=== PATIENT | female | born 1955 | race Caucasian/White ===

== ENCOUNTER 2020-06-03 21:37 | Emergency (ER) | payer MEDICARE ==
[~2020-06-03] VITALS: Ht 152.4 cm; Wt 59.1 kg
[2020-06-03 22:24] LABS: CLARITY,URINE CLEAR (Clear); COLOR,URINE STRAW (Yellow); GLUCOSE, URINE NEGATIVE (Neg); KETONES,URINE NEGATIVE (Neg); LEUKOCYTE ESTERASE ,URINE TRACE (Neg); NITRITES, URINE NEGATIVE (Neg); OCCULT BLOOD,URINE TRACE-INTACT (Neg); PROTEIN,URINE NEGATIVE (Neg); UROBILINOGEN,URINE 0.2 E.U/dL (0.2-1.0)
[2020-06-03 22:32] LABS: BASOPHILS # (AUTO) 0.1 X10'3 (0-0.2); BASOPHILS % (AUTO) 0.9 % (0-1); EOSINOPHILS # (AUTO) 0.3 X10'3 (0-0.9); EOSINOPHILS % (AUTO) 3.2 % (0-6); HEMATOCRIT 41.4 % (35.0-45.0); HEMOGLOBIN 13.9 g/dl (12.0-16.0); LYMPHOCYTES # (AUTO) 3.5 X10'3 (1.1-4.8); LYMPHOCYTES % (AUTO) 45.1 % (21-51); MEAN CORPUSCULAR HEMOGLOBIN 27.8 PG (27.0-31.0); MEAN CORPUSCULAR HGB CONC 33.5 g/dL (33.0-36.5); MEAN CORPUSCULAR VOLUME 83.2 FL (78-98); MEAN PLATELET VOLUME 9.2 FL (7.4-10.4); MONOCYTES % (AUTO) 12.2 % (2-12); NEUTROPHILS % (AUTO) 38.6 % (42-75); PLATELET COUNT 247 X10'3 (140-440); RED BLOOD COUNT 4.98 X10'6 (4.20-5.60); RED CELL DISTRIBUTION WIDTH 13.1 % (11.5-14.5); WHITE BLOOD COUNT 7.9 X10'3 (4.5-11.0)
[2020-06-03 22:33] LABS: UA COLLECTION TYPE NON-SPECIFIED
[2020-06-03 22:35] LABS: BACTERIA,URINE FEW /HPF (Neg); RBC,URINE 0-2 /HPF (0-2); SQUAMOUS EPITHELIAL CELL,UR FEW /LPF (FEW); WBC,URINE 0-4 /HPF (0-4)
[2020-06-03 22:42] LABS: ALANINE AMINOTRANSFERASE 29 U/L (12-78); ALBUMIN 4.2 G/DL (3.4-5.0); ALBUMIN/GLOBULIN RATIO 1.1 (1.1-1.5); ALKALINE PHOSPHATASE 110 IU/L (46-116); ANION GAP 10 (8-16); ASPARTATE AMINO TRANSFERASE 20 U/L (10-37); BILIRUBIN,TOTAL 0.3 MG/DL (0.1-1.0); BLOOD UREA NITROGEN 12 MG/DL (7-18); BUN/CREATININE RATIO 12.9 (6.6-38.0); CALCIUM 9.3 MG/DL (8.5-10.1); CHLORIDE 103 MMOL/L (99-107); CREATININE 0.93 MG/DL (0.40-0.90); GLUCOSE 109 MG/DL (70-104); LIPASE 190 U/L (73-393); POTASSIUM 3.5 MMOL/L (3.5-5.1); SODIUM 141 MMOL/L (135-145); TOTAL CARBON DIOXIDE 27.7 MMOL/L (24-32); TOTAL PROTEIN 8.2 G/DL (6.4-8.2); eGFR 60 ML/MIN
--- NOTE | 2020-06-03 22:55 | NUR ---
US just finished and patient is resting comfortably on gurney.
[2020-06-03] MEDS ORDERED: HYDR-3965 PO (23:03)
[2020-06-03] MEDS ORDERED: ONDA4TAB6 PO (23:03)
[2020-06-03 23:17] VITALS: BP 144/69
[2020-06-06] MEDS ORDERED: ONDA4TAB6 PO (10:07)
== END 2020-06-03 23:20 | disposition home or self-care (01) ==
LOC: ER 21:37
DX: K80.20 Calculus of gallbladder without cholecystitis without obstruction (principal); K80.50 Calculus of bile duct without cholangitis or cholecystitis without obstruction; R10.84 Generalized abdominal pain; Z90.89 Acquired absence of other organs; Z98.890 Other specified postprocedural states; Z88.1 Allergy status to other antibiotic agents; Z88.8 Allergy status to other drugs, medicaments and biological substances; Z79.899 Other long term (current) drug therapy
CPT/HCPCS: 36415; 76700; 80053; 81001; 83690; 85025; 87088; 99284

== ENCOUNTER 2020-06-06 15:00 | Inpatient (IN) | payer MEDICARE ==
[~2020-06-06] VITALS: Ht 153.7 cm; Wt 57.7 kg
[~2020-06-06 15:00] MED LIST: HYDR-3965 PO; ONDA4TAB6 PO
[2020-06-06] MEDS ORDERED: ondansetron/PF 4mg/2ml inj IV PRN (19:05)
[2020-06-06] MEDS ORDERED: HYDROmorphone inj. 0.5 MG/0.5 ML DISP.SYRIN IV PRN (19:05)
[2020-06-06] MEDS ORDERED: HYDROmorphone 1 mg/ml syringe IV PRN (19:05)
[2020-06-06 19:08] VITALS: BP 151/64
[2020-06-06] MEDS: ringers solution, lacted 1,000 ML IV SCH (19:54)
[2020-06-06 21:49] LABS: BASOPHILS # (AUTO) 0.1 X10'3 (0-0.2); EOSINOPHILS # (AUTO) 0.2 X10'3 (0-0.9); EOSINOPHILS % (AUTO) 2.7 % (0-6); HEMATOCRIT 38.5 % (35.0-45.0); HEMOGLOBIN 12.7 g/dl (12.0-16.0); LYMPHOCYTES # (AUTO) 3.6 X10'3 (1.1-4.8); LYMPHOCYTES % (AUTO) 44.1 % (21-51); MEAN CORPUSCULAR HEMOGLOBIN 27.5 PG (27.0-31.0); MEAN CORPUSCULAR VOLUME 83.5 FL (78-98); MEAN PLATELET VOLUME 9.2 FL (7.4-10.4); MONOCYTES # (AUTO) 0.9 X10'3 (0-0.9); MONOCYTES % (AUTO) 11.3 % (2-12); NEUTROPHILS # (AUTO) 3.3 X10'3 (1.8-7.7); NEUTROPHILS % (AUTO) 40.9 % (42-75); PLATELET COUNT 238 X10'3 (140-440); RED BLOOD COUNT 4.61 X10'6 (4.20-5.60); RED CELL DISTRIBUTION WIDTH 12.7 % (11.5-14.5); WHITE BLOOD COUNT 8.1 X10'3 (4.5-11.0)
[2020-06-06 21:51] LABS: ALANINE AMINOTRANSFERASE 26 U/L (12-78); ALBUMIN 3.8 G/DL (3.4-5.0); ALBUMIN/GLOBULIN RATIO 1.1 (1.1-1.5); ANION GAP 8 (8-16); ASPARTATE AMINO TRANSFERASE 18 U/L (10-37); BILIRUBIN,TOTAL 0.4 MG/DL (0.1-1.0); BLOOD UREA NITROGEN 15 MG/DL (7-18); BUN/CREATININE RATIO 17.4 (6.6-38.0); CHLORIDE 104 MMOL/L (99-107); CREATININE 0.86 MG/DL (0.40-0.90); GLUCOSE 109 MG/DL (70-104); POTASSIUM 3.8 MMOL/L (3.5-5.1); SODIUM 141 MMOL/L (135-145); TOTAL CARBON DIOXIDE 29.4 MMOL/L (24-32); TOTAL PROTEIN 7.3 G/DL (6.4-8.2); eGFR 66 ML/MIN
[2020-06-06 21:52] LABS: ALKALINE PHOSPHATASE 97 IU/L (46-116)
[2020-06-07] VITALS (16 sets, daily range): BP systolic 112–166; BP diastolic 66–95
[2020-06-07] MEDS: piperacillin/tazo 3.375gm/50ml 50 ML IV SCH ×2 (01:16→07:11)
--- NOTE | 2020-06-07 05:32 | NUR ---
Pt. refused to take the chlorhexidine shower preferred to use the chlorhexidine wipes instead.
[2020-06-07] MEDS ORDERED: INDOCYANINE GREEN 25 MG/10 ML VIAL IV STA (05:39)
[2020-06-07] MEDS: ringers solution, lacted 1,000 ML IV SCH (06:15)
[2020-06-07] MEDS ORDERED: BUPIVAcaine/PF 2.5 mg/ml (0.25%) 30ml vial ONE (06:34)
[2020-06-07] MEDS ORDERED: LIDOcaine 1% 30ml preserv. free vial ONE (06:34)
--- NOTE | 2020-06-07 07:54 | NUR ---
PT OUT TO SURGERY. CALLED REC[facility]ERY TOO GIVE REPORT ROOM X3, NO ONE ANSWERED.
[2020-06-07] MEDS ORDERED: fentaNYL/PF 50MCG/1 ML 2ML syringe ONE (08:02)
[2020-06-07] MEDS ORDERED: midazolam 1 mg/ML 2ml injection ONE (08:02)
[2020-06-07] MEDS ORDERED: ondansetron/PF 4mg/2ml inj ONE (08:14)
[2020-06-07] MEDS ORDERED: dexamethasone sod phosphate 4mg/ml inj. ONE (08:14)
[2020-06-07] MEDS ORDERED: ondansetron/PF 4mg/2ml inj IV PRN (08:30)
[2020-06-07] MEDS ORDERED: ringers solution, lacted 1,000 ML IV SCH (08:30)
[2020-06-07] MEDS ORDERED: meperidine/PF 25mg/ml syringe IV PRN ×3 (08:30)
[2020-06-07] MEDS ORDERED: proCHLORperazine 10 MG/2 ml inj IV PRN (08:30)
[2020-06-07] MEDS ORDERED: morphine 4 MG/ML inj SYRINge IV PRN (08:30)
[2020-06-07] MEDS ORDERED: morphine 2 MG/ML inj. syringe IV PRN (08:30)
[2020-06-07] MEDS ORDERED: propofol inj 20 ML IV ONE (09:00)
[2020-06-07] MEDS ORDERED: LIDOcaine 2% (20mg/ml) 5ml vial ONE (09:00)
[2020-06-07] MEDS ORDERED: acetaminophen 1,000mg/100ml IV 100 ML IV ONE (09:01)
[2020-06-07] MEDS ORDERED: ketorolac trometh. 30mg/ml inj. ONE (09:04)
[2020-06-07] MEDS ORDERED: glycopyrrolate 0.2mg/ml inj ONE (09:05)
[2020-06-07] MEDS ORDERED: neostigmine methylsulfate 1 MG/ML 10ml vial ONE (09:05)
--- NOTE | 2020-06-07 09:25 | NUR ---
Received from OR via BED , accompanied by Anesthesiologist DR STEPHEN and report given by Anesthesiolgist. PATIENT WAKING UP, DENIES PAIN, V/S WNL, NEUROVASCULAR CHECKS INTACT, 20G PIV LUE, SCD ON, BANDAIDS TO LAP SIGHTS OF ABDOMEN CDI.
[2020-06-07] MEDS ORDERED: HYDROcodone/acetaminophen 10/325mg tab PO PRN (09:30)
[2020-06-07] MEDS ORDERED: HYDROcodone/acetaminophen 5mg/325mg tablet PO PRN (09:30)
--- NOTE | 2020-06-07 09:41 | NUR ---
Pt. in Recovery room. received report from TASIA Esteves
--- NOTE | 2020-06-07 10:15 | NUR ---
PATIENT A&OX4, DENIES PAIN, V/S WNL, NEUROVASCULAR CHECKS INTACT, 20G PIV LUE, SCD ON, BANDAIDS TO LAP SIGHTS OF ABDOMEN CDI. PATIENT TAKEN TO 345B WITH ALL BELONGINGS AND HOOKED UP TO MONITORS IN ROOM AND REPORT GIVEN TO RN WHO HAS TAKEN OVER PATIENT CARE.
[2020-06-07] MEDS ORDERED: HYDR-3964 PO (10:23)
--- NOTE | 2020-06-07 10:45 | NUR ---
Received pt post op. A&O x4. c/o mild discomfort. refused pain med, no s/s of bleeding, abdomen soft. will monitor per facility protocol.
--- NOTE | 2020-06-07 15:58 | NUR ---
Pt discharge home in stable condition. medication and discharge instructions given to pt, Iv removed. Pt ambulating and tolerating diet well. Pt was escorted on w/c to main lobby, left the hospital via private vehicle accompanied by family.
[2020-06-07] MEDS ORDERED: lactobacillus rhamnosus 10,000 MMU CELLS/CAPSULE PO SCH (20:00)
--- NOTE | 2020-06-10 12:08 | NUR ---
CASE MANAGEMENT DISCHARGE FOLLOW UP: Spoke with pt via telephone. Reports that she is "doing okay," reports pain level 2/10 without use of pain medication, reports that she did have constipation but had a BM this AM s/p laxative. She reports that she still does not have much of an appetite but that she is eating fruits and yams, "keeping it simple", and drinking plenty of water. Denies bloating, CP/palpitations, SOB/dyspnea, fever/s/sx of infection. Per pt, she removed bandaids and left steri-strips in place, states that she understands to remove strips in 7-10 days s/p surgery, will call Dr Matthews's office if she has any further questions. Verbalizes understanding of s/sx requiring further evaluation/emergent assistance. Verbalizes understanding of medication, states has not been needed today. Verbalizes compliance with MD discharge instructions. Verbalizes understanding of the importance in making/keeping follow-up appointments, has f/u appt with Dr Matthews on 06/23/2020. States no further questions/concerns at this time.
== END 2020-06-07 15:50 | disposition home or self-care (01) | DRG 419 ==
LOC: SUR 3N 15:00
PROVIDERS: ADMIT Surgery; ATTEND Surgery
PROC: 8E0W4CZ Robotic Assisted Procedure of Trunk Region, Percutaneous Endoscopic Approach (ICD-10-PCS; 2020-06-07)
PROC: BF131ZZ Fluoroscopy of Gallbladder and Bile Ducts using Low Osmolar Contrast (ICD-10-PCS; 2020-06-07)
PROC: 0FT44ZZ Resection of Gallbladder, Percutaneous Endoscopic Approach (ICD-10-PCS; principal; 2020-06-07 07:52)
DX: K80.00 Calculus of gallbladder with acute cholecystitis without obstruction (principal); K82.8 Other specified diseases of gallbladder; Z20.822 Contact with and (suspected) exposure to COVID-19; Z87.891 Personal history of nicotine dependence; Z88.8 Allergy status to other drugs, medicaments and biological substances; Z98.51 Tubal ligation status
CPT/HCPCS: 36415; 76700; 80053; 81001; 82948; 83690; 85025; 87081; 87088; 87426; 93005; 99284; A4215; A4618; A7000; G0378; J0131; J1100; J1885; J2001; J2250; J2405; J2543; J2704; J2710; J3010; J3490; J7120